=== PATIENT | female | born 1970 | race Caucasian/White ===

== ENCOUNTER 2023-10-02 10:23 | Emergency (ER) | payer OTHER ==
[2023-10-02 10:39] VITALS: TEMP 97.8
--- NOTE | 2023-10-02 11:51 | ERPHSYRPT ---
- History of Present Illness Source: patient Exam Limitations: no limitations Patient Subjective Stated Complaint: pt here for multi cos, increase b/p today, headache for 2 days now, no fever or cough, she states she is under a lot of stress and has anxiety issues Triage Nursing Assessment: pt alert, walked in, resp easy, skin w/d/p, no cough. Physician History: 53 yo WF w global headache x 2 days. pain is 6/10 and throbbing. She has some blurry vision. Nausea/vomiting denied. Cough/coryza/focal weakness/fever are all denied. 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 She has limited headache history and no HTN history. Timing/Duration: other (2 days) Quality: throbbing Head Pain Location: global Severity of Pain-Max: moderate Severity of Pain-Current: moderate Recent Head Trauma: no recent headache/trauma Modifying Factors: Worsens With: cold therapy, exposure to light, immobilization, medication, movement, rest, noise, position Associated Symptoms: denies symptoms Previous symptoms: no prior history Allergies/Adverse Reactions: Penicillins Allergy (Verified 10/02/23 10:40) Sulfa (Sulfonamide Antibiotics) Allergy (Verified 10/02/23 10:40) Home Medications: Atorvastatin Calcium [Lipitor 20MG Tablet] 20 mg PO DAILY 10/02/23 [History] Cetirizine HCl [Zyrtec] 10 mg PO DAILY 10/02/23 [History] Hx Tetanus, Diphtheria Vaccination/Date Given: Yes Hx Influenza Vaccination/Date Given: Yes Hx Pneumococcal Vaccination/Date Given: No Immunizations Up to Date: Yes Travel Risk - International Travel Have you traveled outside of the country in past 3 weeks: No - Coronavirus Screening Are you exhibiting any of the following symptoms?: Yes Symptoms: Headaches/Body Aches/Fatigue Close contact with a COVID-19 positive Pt in past 14-21 Days: No - Vaccine Status Have you recieved a Covid-19 vaccination: No [employer]ed [employer]: [employer] - Vaccination Dates Date of 2cond Vaccination (if applicable): 2020 - Review of Systems Constitutional: No Symptoms Eyes: No Symptoms Ears, Nose, & Throat: No Symptoms Respiratory: No Symptoms Cardiac: No Symptoms Abdominal/Gastrointestinal: No Symptoms Genitourinary Symptoms: No Symptoms Musculoskeletal: No Symptoms Skin: No Symptoms Neurological: No Symptoms, Headache Psychological: No Symptoms Endocrine: No Symptoms Hematologic/Lymphatic: No Symptoms Immunological/Allergic: No Symptoms - Past Medical History Pertinent Past Medical History: Yes Cardiac History: High Cholesterol - Past Surgical History Past Surgical History: Yes Gastrointestinal: Hernia Repair Female Surgical History: Hysterectomy, Section Other Surgical History: gastric sleeve - Social History Smoking Status: Never smoker Exposure to second hand smoke: No Drug Use: none Patient Lives Alone: No - Nursing Vital Signs Nursing Vital Signs: Initial Vital Signs Pulse Rate 76 10/02/23 10:37 Respiratory Rate 13 10/02/23 10:37 Blood Pressure 134/79 10/02/23 10:37 O2 Sat by Pulse Oximetry 96 10/02/23 10:37 Pain Scale Pain Intensity 4 WNL - Physical Exam General Appearance: no apparent distress Eye Exam: PERRL/EOMI, eyes nml inspection Ears, Nose, Throat Exam: normal ENT inspection, TMs normal, pharynx normal, moist mucous membranes Neck Exam: normal inspection, non-tender, supple, full range of motion, No meningismus, No mass, No Brudzinski, No Kernig's, No carotid bruit Respiratory Exam: normal breath sounds, lungs clear, airway intact, No respiratory distress Cardiovascular Exam: regular rate/rhythm, normal heart sounds, normal peripheral pulses, capillary refill <2 sec, No murmur Gastrointestinal/Abdominal Exam: soft, normal bowel sounds, No tenderness Back Exam: normal inspection, normal range of motion, No CVA tenderness, No vertebral tenderness Extremity Exam: normal inspection, normal range of motion Mental Status Exam: alert, 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, 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: normal hearing, normal speech, PERRL, No abnormal eye position, No abnormal gag reflex, No facial asymmetry, No facial droop, No facial paresthesias, No facial weakness Coordination/Gait Exam: normal gait, normal cerebellar function Motor/Sensory Exam: no motor deficit, no sensory deficit, no pronator drift, negative Babinski's sign DTR Exam: bicep (R): 2+, bicep (L): 2+ Skin Exam: normal color, warm, dry Lymphatic Exam: No adenopathy SpO2 Interpretation: normal SpO2: 95 O2 Delivery: Room Air - Course Nursing assessment & vital signs reviewed: Yes - CT Exams Head CT Interpretation: Discussed w/radiologist (No active disease) Ordered Tests: Active Orders 24 hr Category Date Time Status HEAD WITHOUT CONTRAST [CT] Stat Exams 10/02/23 10:50 Completed Medication Summary Discontinued Medications Generic Name Dose Route Start Last Admin Trade Name Karen PRN Reason Stop Dose Admin Ketorolac Tromethamine 60 mg 10/02/23 12:35 10/02/23 12:40 Ketorolac Tromethamine 30 Mg/Ml Inj IM 10/02/23 12:36 60 mg STAT ONE Administration Ketorolac Tromethamine Confirm 10/02/23 12:36 Ketorolac Tromethamine 30 Mg/Ml Inj Administered 10/02/23 12:37 Dose 60 mg .ROUTE .STK-MED ONE - Progress Progress: improved Progress Note: 10/02/23 14:53 Nursing note and vital signs reviewed. No food or housing insecurity noted. Serial neuro exams within normal limits. CT of the head negative per Dr. Vidales. Patient normotensive during her stay in ER. 10/02/23 14:54 60 mg IM Toradol given. Patient discharged in care of her . Patient advised to follow-up with her PCP. Patient also vies return to ER for increasing pain, temperature greater 100.5, or any focal weakness. There was no fever or nuchal rigidity while she was in ER. Counseled pt/family regarding: diagnosis, need for follow-up, rad results Medical Desision Making - Independent Historian Additional History obtained from: Spouse - Diagnostic Testing Radiological Interpretation: Reviewed by me - Risk of complications Low Risk: Low risk of morbidity from additional dx testing or treatment - Departure Departure Disposition: Home Clinical Impression: Headache Condition: Stable Critical Care Time: No Referrals: MAKAYLA GARY [Primary Care Provider] - Follow up/PCP as directed Instructions: Headache, Adult Additional Instructions: Follow up with your family MD Return to ER for increasing pain, focal weakness, or temperature greater than 100.5
--- NOTE | 2023-10-02 11:57 | XRAY ---
Indication: Headache. Elevated blood pressure. Although contiguous axial images obtained through the head without contrast. Person: None Normal appearing brain parenchyma, ventricles, and bony calvarium. Visualized paranasal sinuses and mastoid air cells are clear. Impression: Normal CT head without contrast exam.
[2023-10-02] MEDS ORDERED: TORAdol 30 mg Injection IM ONE (12:35)
[2023-10-02] MEDS ORDERED: TORAdol 30 mg Injection ONE (12:36)
[2023-10-02 13:02] VITALS: BP 114/54; PULSE 74; RESP 18
[2023-10-02 14:55] VITALS: O2SAT 95
== END 2023-10-02 13:04 | disposition home or self-care (01) ==
LOC: ED 10:23
DX: R51.9 Headache, unspecified (principal); H53.8 Other visual disturbances; E78.5 Hyperlipidemia, unspecified; Z79.899 Other long term (current) drug therapy
CPT/HCPCS: 70450; 96372; 99283; J1885

== ENCOUNTER 2025-07-19 06:31 | Day surgery (SDC) | payer OTHER ==
[2025-07-19] MEDS: Lactated Ringers 1,000 ML IV SCH (07:05)
[2025-07-19] MEDS ORDERED: propofoL IV ONE ×2 (08:05→08:18)
[2025-07-19] MEDS ORDERED: Xylocaine-Mpf 2% 5 Ml Vial ONE (08:05)
[2025-07-19 08:39] VITALS: TEMP 96.8
[2025-07-19 08:51] VITALS: O2SAT 100
[2025-07-19 08:59] VITALS: RESP 18
[2025-07-19 09:08] VITALS: BP 115/73; PULSE 63
--- NOTE | 2025-07-20 12:21 | OP ---
SURGERY DATE/TIME: 07/19/2025 [id number] PREOPERATIVE DIAGNOSIS: Screening colonoscopy. POSTOPERATIVE DIAGNOSES: 1) Normal colon. 2) Diverticulosis. PROCEDURE PERFORMED: Colonoscopy. SURGEON: Anmol Byrd MD. ANESTHESIA: MAC by Abe Hyman CRNA. ESTIMATED BLOOD LOSS: None. SPECIMEN: None. DESCRIPTION OF PROCEDURE AND FINDINGS: After informed written consent was obtained, the patient was taken to the endoscopy suite. She was placed in the left lateral decubitus position and anesthesia was titrated to desired level of consciousness. Digital rectal exam showed some mild external hemorrhoids. No other internal lesions. Normal sphincter tone. Scope was inserted into the rectum and sequentially the entire colonic mucosa was traversed. Level of the cecum was reached and verified with direct visualization of the ileocecal valve. Upon withdrawal, there were scattered diverticula, but no other mucosal abnormalities. Prior to withdrawal, retroflexion showed no internal lesions. The scope was removed and the patient was transferred to the recovery room in good condition.
== END 2025-07-19 09:15 | disposition home or self-care (01) ==
LOC: SDC 06:31
PROVIDERS: ATTEND Family Medicine
DX: Z12.11 Encounter for screening for malignant neoplasm of colon (principal); K57.30 Diverticulosis of large intestine without perforation or abscess without bleeding; K64.4 Residual hemorrhoidal skin tags